=== PATIENT | male | born 1950 | race Hispanic/Latino ===

== ENCOUNTER → 2020-04-28 | Emergency (ER) | payer OTHER ==
[~2020-04-28] MED LIST: Aspirin Chewable 81 MG TAB ONE; Azithromycin 500 MG VIAL ONE; Iopamidol 370 76% 100 ML VIAL ONE; Sodium Chloride 0.9% 100 ML ONE; Sodium Chloride 0.9% 250 ML 250 ML ONE; cefTRIAXone\\ROCEPHIN 2 GM VIAL ONE
[2020-04-28 06:30] LABS: #Basophils 0.1 thou/uL (0.0-0.2); #Eosinphils 0.3 thou/uL (0.0-0.7); #Lymphocytes 1.4 thou/uL (1.20-3.40); #Monocytes 0.7 thou/uL (0.11-0.59); %Basophils 0.9 % (0.0-1.0); %Eosinophils 3.6 % (0.0-10.0); %Neutrophils 71.6 % (42.0-75.0); Hemoglobin 12.2 g/dL (14.0-18.0); Mean Corpuscular HGB CONC 32.1 g/dL (32.0-36.0); Mean Corpuscular Hemoglobin 29.5 pg (27.0-31.0); Mean Platelet Volume 5.7 fL (7.4-10.4); Platelet Count 176 thou/uL (130-400); RBC Distribution Width 12.9 % (11.5-14.5); Red Blood Cell (RBC) Count 4.14 mill/uL (4.70-6.10); White Blood Cell (WBC) Count 8.4 thou/uL (4.8-10.8)
[2020-04-28 06:45] LABS: ALT (SGPT) 9 U/L (8-55); AST (SGOT) 16 U/L (5-34); Alkaline Phosphatase 61 U/L (40-110); Anion Gap 13 mmol/L (10-20); BUN (Urea Nitrogen) 13 mg/dL (8.4-25.7); Bilirubin, Total 0.9 mg/dL (0.2-1.2); Calc. Creatinine Clearance 0 mL/min (70-130); Calcium 8.9 mg/dL (7.8-10.44); Carbon Dioxide 28 mmol/L (23-31); Chloride 102 mmol/L (98-107); Estimated GFR-MDRD Greater than 90; Globulin 3.7 g/dL (2.4-3.5); Glucose 99 mg/dL (83-110); Potassium 3.7 mmol/L (3.5-5.1); Protein, Total 7.7 g/dL (5.8-8.1); Sodium 139 mmol/L (136-145)
--- NOTE | 2020-04-28 08:17 | CT ---
CT PULMONARY ANGIOGRAM WITH IV CONTRAST AND 3-D POSTPROCESSING: HISTORY:Cough FINDINGS: There is good contrast opacification of the pulmonary arterial vasculature without filling defects to suggest pulmonary embolism. The thoracic aorta is well opacified without aneurysm or dissection. No pleural or pericardial effusions are seen. There are prominent mediastinal lymph nodes. No pneumothoraces, focal areas of consolidation or lung nodules are noted. There are changes of chron ic interstitial lung disease. There are degenerative changes in the spine. Upper abdominal tomograms demonstrate air in the biliary tracts and changes of cholecystectomy.. IMPRESSION: No CT evidence of pulmonary embolism.
--- NOTE | 2020-04-28 09:12 | RAD ---
CHEST 1 VIEW: Date: 04/28/2020 INDICATION: Cough. COMPARISON: None. FINDINGS: There is diffuse interstitial and air space opacity involving the left lung and right lower lobe susp icious for multifocal pneumonia. Heart size is mildly prominent. There is a very tiny left-sided pleu ral effusion. No pneumothorax is evident. No acute osseous abnormality is evident. IMPRESSION: Findings suspicious for bilateral pneumonia. POS: [facility]
[2020-04-29 12:35] LABS: SARS-CoV-2 by NAA DETECTED (NotDetected)
[2020-04-29 12:36] LABS: SARS-CoV-2 MS2 Positive; SARS-CoV-2 N Gene Positive; SARS-CoV-2 S Gene Negative; SARS-CoV-2 orf1ab Positive
== END ==
LOC: NAV ERS 05:40
DX: U07.1 COVID-19 (principal); J84.9 Interstitial pulmonary disease, unspecified; I10 Essential (primary) hypertension; D51.9 Vitamin B12 deficiency anemia, unspecified; Z79.899 Other long term (current) drug therapy; Z79.82 Long term (current) use of aspirin
CPT/HCPCS: 71045; 71275; 80053; 83605; 84484; 85025; 85379; 87040; 87635; 93005; 94760; 96365; 96367; J0456; J0696; J3490; J7050; Q9967; U0003